=== PATIENT | female | born 1995 | race Two or more races ===

== ENCOUNTER 2022-01-30 23:58 | Emergency (ER) | payer OTHER | END 2022-01-31 02:41 | disposition left against medical advice (07) | LOC: ER 23:58 | DX: Z53.21 Procedure and treatment not carried out due to patient leaving prior to being seen by health care provider (principal) ==

== ENCOUNTER 2022-02-03 09:01 | Emergency (ER) | payer MEDICAID, OTHER ==
[~2022-02-03] VITALS: Ht 157.5 cm; Wt 91.0 kg
[2022-02-03] MEDS ORDERED: METOCLOPRAMIDE HCL 10MG/2ML VIAL IV ONE (09:45)
[2022-02-03] MEDS ORDERED: KETOROLAC 15MG/ML VIAL IV ONE (09:45)
[2022-02-03] MEDS ORDERED: DIPHENHYDRAMINE 50MG/ML VIAL IV ONE (09:45)
[2022-02-03] MEDS ORDERED: SODIUM CHLORIDE 0.9% 500 ML IV ONE (10:00)
[2022-02-03] MEDS ORDERED: ACET-2708 PO (11:11)
[2022-02-03 12:58] LABS: BASOPHILS % 1.2 % (0.0-2.0); EOSINOPHILS % 1.4 % (0.0-5.0); HEMATOCRIT. 38.4 % (36.0-48.0); HEMOGLOBIN. 12.4 g/dL (12.0-16.0); MEAN CORPUSCULAR HEMOGLOBIN 24.5 pg (28.0-32.0); MEAN CORPUSCULAR VOLUME 75.6 fL (81.0-99.0); MEAN PLATELET VOLUME 8.3 fl (7.4-10.4); MONOCYTES % 4.4 % (2.0-8.0); PLATELET 303 x1000/uL (130-400); RED BLOOD CELL COUNT 5.08 mill/uL (4.2-5.4); RED CELL DISTRIBUTION WIDTH 18.6 % (11.6-14.6)
[2022-02-03 13:30] LABS: CHLORIDE 110 mEq/L (98-107)
[2022-02-03] MEDS ORDERED: IOHEXOL-350 100 ML BOTTLE ONE (14:45)
[2022-02-03 15:05] VITALS: BP 137/76
== END 2022-02-03 15:15 | disposition home or self-care (01) ==
LOC: ER 09:01
DX: G43.909 Migraine, unspecified, not intractable, without status migrainosus (principal); R03.0 Elevated blood-pressure reading, without diagnosis of hypertension
CPT/HCPCS: 36415; 70496; 80053; 85025; 96361; 96374; 96375; 99285; J1200; J1885; J2765; J7040; Q9967

== ENCOUNTER 2023-07-14 07:28 | Emergency (ER) | payer SELFPAY ==
[~2023-07-14] VITALS: Ht 157.5 cm; Wt 86.0 kg
[~2023-07-14 07:28] MED LIST: ACET-2708 PO
[2023-07-14 07:39] VITALS: BP 120/76; PULSE 102; RESP 18; TEMP 99.6; O2SAT 98
[2023-07-14] MEDS: DEXAMETHASONE 10 MG/ML VIAL IM ONE (08:45)
[2023-07-14] MEDS ORDERED: DEX2 MT (10:25)
== END 2023-07-14 11:14 | disposition home or self-care (01) ==
LOC: ER 07:28
DX: J02.9 Acute pharyngitis, unspecified (principal); R50.9 Fever, unspecified; R05.9 Cough, unspecified
CPT/HCPCS: 99283; 87430; 87070; 96372; J1100